=== PATIENT | male | born 1965 | race Hispanic/Latino ===

== ENCOUNTER → 2017-03-29 | Day surgery (SDC) | payer OTHER ==
[~2017-03-29] VITALS: Ht 175.3 cm; Wt 93.0 kg
[~2017-03-29] MED LIST: 0.9% Sodium Chloride 1,000 ML IV SCH; Sodium Chloride LOK Flush 10 mL Syringe IV PRN; fentaNYL-PF 50 mCg/mL 2 mL Inj IVPUSH PRN
[2017-03-29 15:17] VITALS: PULSE 68; RESP 12; O2SAT 100
[2017-03-29 15:19] VITALS: BP 131/79; PULSE 70; RESP 12; O2SAT 98
--- NOTE | 2017-03-29 16:10 | PCM.ENDCOL ---
Colonoscopy Date of Service: Mar 29, 2017 Physician Curtis Canas MD Pre Procedure Diagnosis: Positive blood in the stools Post Procedure Dx & Findings: Poor prep Procedure Colonoscopy PROCEDURE IN DETAIL: Prep poor prep After unremarkable rectal examination the Olympus video colonoscope was inserted patient's anal canal and was advanced to cecum. Landmarks were identified including the ileocecal valve and appendiceal orifice. Scope was withdrawn systematically. Visualized colonic mucosa showed healthy shiny mucosa with normal healthy-appearing vasculature. Patient has fibrous material from the cecum and the entire ascending colon. Visualization was significantly compromised. In the rectum retroflexion was done which showed hemorrhoids. Anal canal was inspected carefully on the way out and hemorrhoids noted. Impression Poor prep Hemorrhoids Recommendation Repeat colonoscopy in 3 months with 7 days of low fiber diet 2 days of clear liquid diet. Presedation Assessment Risks and Benefits Informed consent was obtained from the patient after all risks and benefits including but not limited to drug reaction, infection, pain, bleeding, perforation, as well as alternatives were discussed. Patient monitoring Continuous pulse oximetry, cardiac monitoring, blood pressure monitoring, IV access, and oxygen at 2L per nasal cannula. Periprocedural Fentanyl: Fentanyl 100mcg Incrementally Midazolam: Midazolam 5mg Incrementally Complications There were no periprocedural complications identified. Post Procedure Plan Post Procedure Recommendations 1. Restrict activities today. 2. Resume normal activities in the morning. 3. Resume medications. 4. Patient informed of normal post procedure side effects as bloating, drowsiness, blood streaking in the stool. 5. average risk CRCS. If colon polyps come back as: -Hyperplastic- can repeat colonoscopy in 10 years -Tubular adenoma- repeat colonoscopy in 5 years -Tubulovillous/villous adenoma- repeat colonoscopy in 3 years -If any dysplasia- return to clinic as soon as possible 6. Please don't hesitate to call me with any questions. Curtis Canas MD Mar 29, 2017 16:10
[2017-03-29 16:11] VITALS: BP 117/77; PULSE 76; RESP 14; O2SAT 97
[2017-03-29 16:21] VITALS: BP 103/72; PULSE 70; RESP 14; O2SAT 98
[2017-03-29 16:30] VITALS: BP 113/72; PULSE 68; RESP 14; O2SAT 98
== END | disposition home or self-care (01) ==
LOC: END 00:28
PROVIDERS: ATTEND Internal Medicine
DX: K64.9 Unspecified hemorrhoids (principal); R19.5 Other fecal abnormalities; Z53.8 Procedure and treatment not carried out for other reasons
CPT/HCPCS: 45378; 99152; J2250; J3010; J7030